=== PATIENT | female | born 2000 | race Caucasian/White ===

== ENCOUNTER 2022-12-09 11:50 | Outpatient (CLI) | payer BC, SELFPAY ==
[2022-12-09 22:14] LABS: Kit Draw Collected
== END 2022-12-09 11:51 | disposition home or self-care (01) ==
LOC: ANHGOSHLAB 11:52
PROVIDERS: PCP Family Medicine; Visit Provider Nurse Practitioner Family
DX: D64.9 Anemia, unspecified (principal); R53.83 Other fatigue
CPT/HCPCS: 36415